=== PATIENT | female | born 1950 | race African-American/Black ===

== ENCOUNTER 2016-08-07 22:27 | Emergency (ER) | payer SELFPAY ==
[2016-08-07 22:36] VITALS: BP 185/90
== END 2016-08-08 02:00 | disposition left against medical advice (07) ==
LOC: ER 22:27
DX: Z53.21 Procedure and treatment not carried out due to patient leaving prior to being seen by health care provider (principal)

== ENCOUNTER 2016-08-09 18:03 | Emergency (ER) | payer BC ==
--- NOTE | 2016-08-09 19:59 | ER Document Report ---
HPI - HPI Patient complains to provider of: rash Onset: - saturday Onset/Duration: Gradual Quality of pain: Burning Pain Level: 2 Context: burnoing pain followed by vesicular lesions below her right eye without vision changes Associated Symptoms: None Exacerbated by: Denies Relieved by: Denies - REPRODUCTIVE Reproductive: DENIES: : - DERM Skin Color: Normal Past Medical History - Social History Smoking Status: Unknown if Ever Smoked Family History: Reviewed & Not Pertinent Patient has suicidal ideation: No Patient has homicidal ideation: No Renal/ Medical History: Denies: Hx Peritoneal Dialysis - Immunizations Hx Diphtheria, Pertussis, Tetanus Vaccination: Yes Vertical Provider Document - CONSTITUTIONAL Agree With Documented VS: Yes Exam Limitations: No Limitations General Appearance: WD/WN, No Apparent Distress - INFECTION CONTROL TRAVEL OUTSIDE OF THE [place] IN LAST 30 DAYS: No - HEENT HEENT: Atraumatic, Normocephalic, PERRLA. negative: Conjuctival Injection - RESPIRATORY Respiratory: Breath Sounds Normal, No Respiratory Distress, Chest Non-Tender O2 Sat by Pulse Oximetry: 98 - CARDIOVASCULAR Cardiovascular: Regular Rate, Regular Rhythm, No Murmur - NEURO Level of Consciousness: Awake, Alert, Appropriate Motor/Sensory: No Motor Deficit, No Sensory Deficit - DERM Integumentary: Warm, Dry, Rash - vesicles on erythematous base below the right eye Course - Re-evaluation Re-evalutation: 08/09/16 22:25 This 66-year-old female hemodynamic stable, no acute distress afebrile. Presentation today is concerning for shingles. Initiated patient on Valtrex and steroids and told to follow-up with ophthalmology tomorrow. - Vital Signs Vital signs: Temp Pulse Resp BP Pulse Ox 98.2 F 73 20 176/77 H 98 08/09/16 18:19 08/09/16 18:19 08/09/16 18:19 08/09/16 18:19 08/09/16 18:19 Discharge - Discharge Clinical Impression: Shingles Condition: Good Disposition: HOME, SELF-CARE Instructions: Ophthalmic Zoster (Shingles of the Eye) ([facility]), Shingles ([facility]) Prescriptions: Prednisone 20 mg PO ASDIR 21 Days Valacyclovir HCl [Valtrex 500 Mg Tablet] 1,000 mg PO TID 7 Days Forms: Elevated Blood Pressure Referrals: CISCO OVERTON MD [Primary Care Provider] - Follow up as needed GEOVANNY MILLER MD [ACTIVE STAFF] - Follow up tomorrow (Eye doctor, follow up with tomorrow)
[2016-08-09] MEDS ORDERED: PREDNISONE 20 MG TABLET PO ONE (20:02)
[2016-08-09] MEDS ORDERED: VALACYCLOVIR HCL 500 MG TABLET PO ONE (20:02)
[2016-08-09 20:44] VITALS: BP 178/87
== END 2016-08-09 20:43 | disposition home or self-care (01) ==
LOC: ER 18:03
DX: B02.9 Zoster without complications (principal)
CPT/HCPCS: 99281; 87070; 87205; 87077; J7512; 87186

== ENCOUNTER 2017-01-04 14:23 | Emergency (ER) | payer OTHER ==
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
[2017-01-04 15:30] LABS: ABSOLUTE EOSINOPHILS # (AUTO) 0.1 10^3/uL (0.0-0.6); ABSOLUTE LYMPHOCYTES (AUTO) 2.4 10^3/uL (0.5-4.7); ABSOLUTE MONOCYTES (AUTO) 0.4 10^3/uL (0.1-1.4); ABSOLUTE NEUT (AUTO) 3.8 10^3/uL (1.7-8.2); BASOPHILS % (AUTO) 0.5 % (0-2); EOSINOPHILS % (AUTO) 1.7 % (0-6); HEMATOCRIT 38.8 % (36.0-47.0); HEMOGLOBIN 13.2 g/dL (12.0-15.5); HGB HCT DIFFERENCE 0.8; LYMPHOCYTES % (AUTO) 35.3 % (13-45); MEAN CORPUSCULAR HEMOGLOBIN 29.7 pg (27.0-33.4); MEAN CORPUSCULAR HGB CONC 33.9 g/dL (32.0-36.0); MEAN CORPUSCULAR VOLUME 88 fl (80-97); MONOCYTES % (AUTO) 6.5 % (3-13); RED BLOOD COUNT 4.43 10^6/uL (3.72-5.28); WHITE BLOOD COUNT 6.9 10^3/uL (4.0-10.5)
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
[2017-01-04 15:42] LABS: ALANINE AMINOTRANSFERASE 35 U/L (9-52); ALBUMIN 4.5 g/dL (3.5-5.0); ALKALINE PHOSPHATASE 103 U/L (38-126); ANION GAP 14 (5-19); ASPARTATE AMINO TRANSFERASE 31 U/L (14-36); BILIRUBIN,DIRECT 0.3 mg/dL (0.0-0.4); BILIRUBIN,TOTAL 0.5 mg/dL (0.2-1.3); BLOOD UREA NITROGEN 16 mg/dL (7-20); CARBON DIOXIDE 30 mmol/L (22-30); CHLORIDE 103 mmol/L (98-107); CREATININE RESULT 0.79 mg/dL (0.52-1.25); GLUCOSE 101 mg/dL (75-110); POTASSIUM 3.9 mmol/L (3.6-5.0); SODIUM 146.8 mmol/L (137-145); TOTAL PROTEIN 8.1 g/dL (6.3-8.2)
[2017-01-04] MEDS ORDERED: MECLIZINE HCL 25 MG TABLET PO ONE (17:55)
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
[2017-01-04 18:20] LABS: APPEARANCE,URINE CLEAR; BILIRUBIN,URINE NEGATIVE (NEGATIVE); GLUCOSE, URINE NEGATIVE (NEGATIVE); KETONES,URINE NEGATIVE (NEGATIVE); LEUKOCYTE ESTERASE,URINE NEGATIVE (NEGATIVE); NITRITE,URINE NEGATIVE (NEGATIVE); PROTEIN,URINE NEGATIVE (NEGATIVE); URINE SPECIFIC GRAVITY 1.008; UROBILINOGEN,URINE NEGATIVE mg/dL (<2.0)
[2017-01-04 19:02] VITALS: BP 185/91
== END 2017-01-04 18:02 | disposition home or self-care (01) ==
LOC: ER 14:23
DX: R42 Dizziness and giddiness (principal); V87.7XXA Person injured in collision between other specified motor vehicles (traffic), initial encounter
CPT/HCPCS: 36415; 70450; 80053; 81001; 85025; 99284